=== PATIENT | male | born 1970 | race Caucasian/White ===

== ENCOUNTER 2020-03-27 02:22 | Emergency (ER) | payer MEDICAID ==
[~2020-03-27] VITALS: Ht 157.5 cm; Wt 73.6 kg
[2020-03-27 02:33] VITALS: Ht 157.5 cm; Wt 73.6 kg
[2020-03-27 02:48] VITALS: BP 122/68
== END 2020-03-27 03:00 | disposition home or self-care (01) ==
LOC: ED 02:22
DX: B02.9 Zoster without complications (principal); B01.9 Varicella without complication